=== PATIENT | male | born 1955 | race Caucasian/White ===

== ENCOUNTER 2016-12-08 07:50 | Observation (INO) | payer MEDICAID, OTHER ==
[~2016-12-08] VITALS: Ht 180.3 cm; Wt 98.3 kg
[2016-12-08] VITALS (9 sets, daily range): BP systolic 168–209; BP diastolic 82–117; PULSE 60–67; RESP 16–20; TEMP 98.1–99.2; O2SAT 94–97
[~2016-12-08 07:50] MED LIST: DIOV40TA PO; TAMS0.4C67 PO
[2016-12-08] MEDS ORDERED: TAMS0.4C4 PO (08:13)
--- NOTE | 2016-12-08 08:26 | PD ---
HPI Chief Complaint: Abdominal Pain Time Seen by Provider: 08:19 Travel History International Travel<30 days: No Contact w/Intl Traveler<30days: No Traveled to known affect area: No History of Present Illness HPI Patient presents with complaints of abdominal pain intermittently over the last 6 months. Normally resolves without complication however on this occasion it is persistent. Present for approximately 12-16 hours. Admits to an episode of nausea and vomiting. Denies any urinary or bowel symptoms. Reports stools are dark. Denies any abdominal surgeries. Denies any acid brash or reflux. Denies any fevers. PFSH Past Medical History Hx Anticoagulant Therapy: No Diabetes: No Genitourinary: Yes (ENLARGED PROSTATE) Hypertension: Yes Immunizations Current: Yes Influenza Vaccination: No Social History Alcohol Use: No Tobacco Use: No (NEVER) Substance Use: No Allergies-Medications (Allergen,Severity, Reaction): Coded Allergies: No Known Allergies (Unverified , 12/08/16) Reported Meds & Prescriptions Reported Meds & Active Scripts Active Reported Tamsulosin (Tamsulosin HCl) 0.4 Mg Cap 0.4 Mg PO DAILY Review of Systems General / Constitutional: No: Fever Eyes: No: Visual changes HENT: No: Headaches Cardiovascular: No: Chest Pain or Discomfort Respiratory: No: Shortness of Breath Gastrointestinal: Positive: Nausea, Vomiting, Abdominal Pain Genitourinary: No: Dysuria Musculoskeletal: No: Pain Skin: No Rash Neurologic: No: Weakness Psychiatric: No: Depression Endocrine: No: Polydipsia Hematologic/Lymphatic: No: Easy Bruising Physical Exam Narrative GENERAL: Well-nourished, well-developed patient. SKIN: Focused skin assessment warm/dry. HEAD: Normocephalic. EYES: No scleral icterus. No injection or drainage. NECK: Supple, trachea midline. No JVD or lymphadenopathy. CARDIOVASCULAR: Regular rate and rhythm without murmurs, gallops, or rubs. RESPIRATORY: Breath sounds equal bilaterally. No accessory muscle use. GASTROINTESTINAL: Abdomen soft, diffusely tender, nondistended, no hepatosplenomegaly. MUSCULOSKELETAL: No cyanosis, or edema. BACK: Nontender without obvious deformity. No CVA tenderness. Data Data Last Documented VS Vital Signs Date Time Temp Pulse Resp B/P Pulse Ox O2 Delivery O2 Flow Rate FiO2 12/08/16 09:00 16 96 Room Air 12/08/16 07:54 98.4 Orders Complete Blood Count With Diff (12/08/16 08:19) Comprehensive Metabolic Panel (12/08/16 08:19) Lipase (12/08/16 08:19) Lactic Acid (12/08/16 08:19) Ct Abd/Pel W Iv Contrast(Rout) (12/08/16 08:19) Iv Access Insert/Monitor (12/08/16 08:19) Ecg Monitoring (12/08/16 08:19) Oximetry (12/08/16 08:19) Ondansetron Inj (Zofran Inj) (12/08/16 08:30) Pantoprazole Inj (Protonix Inj) (12/08/16 08:30) Sodium Chloride 0.9% Flush (Ns Flush) (12/08/16 08:30) Famotidine Inj (Pepcid Inj) (12/08/16 08:30) Al-Mag Hy-Si 40-40-4 Mg/Ml Liq (Mag-Al P (12/08/16 08:30) Lidocaine 2% Viscous (Xylocaine 2% Visco (12/08/16 08:30) Oral Contrast - Adult (12/08/16 08:24) Diatrizoate Liq ( Gastroview Liq) (12/08/16 09:00) Iohexol 350 Inj (Omnipaque 350 Inj) (12/08/16 10:11) Ciprofloxacin 400 Mg Premix (Cipro 400 M (12/08/16 11:00) Metronidazole 500 Mg Inj (Flagyl 500 Mg (12/08/16 11:00) Urinalysis - C+S If Indicated (12/08/16 11:08) Place In Observation (12/08/16 ) Vital Signs (Adult) Q4H (12/08/16 11:09) Activity Oob With Assistance (12/08/16 11:09) Diet Npo (12/08/16 Lunch) Sodium Chloride 0.9% Flush (Ns Flush) (12/08/16 11:15) Sodium Chloride 0.9% Flush (Ns Flush) (12/08/16 21:00) Acetaminophen (Tylenol) (12/08/16 11:15) Ondansetron Inj (Zofran Inj) (12/08/16 11:15) Bisacodyl Supp (Dulcolax Supp) (12/08/16 11:15) Basic Metabolic Panel (Bmp) (12/09/16 06:00) Complete Blood Count With Diff (12/09/16 06:00) Resp Oxygen Bean C Titrat 1-4 L (12/08/16 ) Case Management Consult (12/08/16 11:09) Scd Bilateral/Knee High HAO.BID (12/08/16 11:09) Acetaminophen (Tylenol) (12/08/16 11:15) Acetamin-Hydrocod 325-5 Mg ([place] 5-325 (12/08/16 11:15) Acetamin-Hydrocod 325-10 Mg ([place] 10-32 (12/08/16 11:15) Morphine Inj (Morphine Inj) (12/08/16 11:15) Morphine Inj (Morphine Inj) (12/08/16 11:15) Morphine Inj (Morphine Inj) (12/08/16 11:15) Naloxone Inj (Narcan Inj) (12/08/16 11:15) Ns + Kcl 20 Meq Inj (Ns + Kcl 20 Meq Inj (12/08/16 11:15) Occult Blood (Hemoccult) Stool (12/08/16 11:09) Pantoprazole Inj (Protonix Inj) (12/08/16 12:00) Enalaprilat Inj (Vasotec Inj) (12/08/16 11:15) Clonidine (Catapres) (12/08/16 11:15) Tamsulosin (Flomax) (12/09/16 09:00) Consult General Surgery (12/08/16 ) Metronidazole 500 Mg Inj (Flagyl 500 Mg (12/08/16 18:00) Ciprofloxacin 400 Mg Premix (Cipro 400 M (12/08/16 23:00) Us Abdomen Gallbladder (12/08/16 ) Admit Order (Ed Use Only) (12/08/16 ) Vital Signs (Adult) Q4H (12/08/16 11:47) Diet Npo (12/09/16 Breakfast) Activity Bed Rest With Brp (12/08/16 11:47) ^ Saline Lock (12/08/16 11:47) Resp Oxygen Bean C Titrat 1-4 L (12/08/16 ) Notify Dr: Other (12/08/16 11:47) 1/2 Ns + Kcl 20 Meq Inj (1/2 Ns + Kcl 20 (12/08/16 12:00) Labs Laboratory Tests Test 12/08/16 12/08/16 12/08/16 12/08/16 08:30 08:44 08:45 11:15 Lactic Acid Level 2.4 mmol/L White Blood Count 8.9 TH/MM3 Red Blood Count 5.20 MIL/MM3 Hemoglobin 15.0 GM/DL Hematocrit 45.6 % Mean Corpuscular Volume 87.6 FL Mean Corpuscular Hemoglobin 28.8 PG Mean Corpuscular Hemoglobin 32.8 % Concent Red Cell Distribution Width 13.4 % Platelet Count 246 TH/MM3 Mean Platelet Volume 8.3 FL Neutrophils (%) (Auto) 86.7 % Lymphocytes (%) (Auto) 7.6 % Monocytes (%) (Auto) 3.9 % Eosinophils (%) (Auto) 1.1 % Basophils (%) (Auto) 0.7 % Neutrophils # (Auto) 7.7 TH/MM3 Lymphocytes # (Auto) 0.7 TH/MM3 Monocytes # (Auto) 0.3 TH/MM3 Eosinophils # (Auto) 0.1 TH/MM3 Basophils # (Auto) 0.1 TH/MM3 CBC Comment DIFF FINAL Differential Comment Sodium Level 143 MEQ/L Potassium Level 4.3 MEQ/L Chloride Level 107 MEQ/L Carbon Dioxide Level 25.3 MEQ/L Anion Gap 11 MEQ/L Blood Urea Nitrogen 15 MG/DL Creatinine 0.79 MG/DL Estimat Glomerular Filtration 100 ML/MIN Rate Random Glucose 116 MG/DL Calcium Level 8.8 MG/DL Total Bilirubin 0.7 MG/DL Aspartate Amino Transf 21 U/L (AST/SGOT) Alanine Aminotransferase 30 U/L (ALT/SGPT) Alkaline Phosphatase 59 U/L Total Protein 7.2 GM/DL Albumin 3.5 GM/DL Lipase 108 U/L Urine Collection Type CLEAN CATCH Urine Color YELLOW Urine Turbidity CLEAR Urine pH 5.5 Urine Specific [place] 1.010 Urine Protein NEG mg/dL Urine Glucose (UA) NEG mg/dL Urine Ketones NEG mg/dL Urine Occult Blood TRACE Urine Nitrite NEG Urine Bilirubin NEG Urine Leukocyte Esterase NEG Urine RBC 0-3 /hpf Urine Squamous Epithelial 0-5 /hpf Cells Microscopic Urinalysis Comment CULT NOT INDICATED Urine Collection Time 11:15 MDM Medical Decision Making Medical Screen Exam Complete: Yes Emergency Medical Condition: Yes Differential Diagnosis Colitis, gastroenteritis, pancreatitis, gallbladder disease, GI bleed Narrative Course Assessment and plan discussed the patient and at bedside. Last 72 hours Impressions Abdomen/Pelvis CT 12/08/16 0819 Signed Impressions: Service Date/Time: Thursday, December 08, 2016 09:59 - CONCLUSION: 1. Slightly prominent gallbladder with possible gallbladder wall thickening and pericholecystic fluid and cholecystitis is not excluded. 2. Enlarged prostate, and probable bladder diverticulum. Kervin Horowitz MD With questionable cholecystitis patient was given IV antibiotics. Physician Communication Physician Communication Spoke with Dr. Brown who is in agreement will admit for observation. Spoke with Dr. Lo with surgery he is aware and will follow up on the ultrasound. Diagnosis Primary Impression: Abdominal pain Qualified Code: R10.84 - Generalized abdominal pain Admitting Information Admitting Physician Requests: Observation Pancho Pablo MD Dec 08, 2016 08:26
[2016-12-08] MEDS ORDERED: LIDOCAINE VISCOUS 2% SOLN 15 ML UDC PO ONE (08:30)
[2016-12-08] MEDS ORDERED: PANTOPRAZOLE SODIUM 40 MG VIAL IVP ONE (08:30)
[2016-12-08] MEDS ORDERED: FAMOTIDINE 20 MG/2 ML VIAL IV PUSH ONE (08:30)
[2016-12-08] MEDS ORDERED: ALUMINUM/MAGNESIUM/SIMETH 30 ML CUP PO ONE (08:30)
[2016-12-08] MEDS ORDERED: SODIUM CHLORIDE 0.9% FLUSH 10 ML FLUSH IV FLUSH PRN ×2 (08:30→11:15)
[2016-12-08] MEDS ORDERED: ONDANSETRON HCL 4 MG/2 ML VIAL IVP ONE (08:30)
[2016-12-08] MEDS ORDERED: DIATRIZOATE MEGLUM/DIATRIZOATE SOD 9 ML CUP ONE (09:00)
[2016-12-08 09:13] LABS: AUTOMATED NEUTROPHIL # 7.7 TH/MM3 (1.8-7.7); BASOPHIL # 0.1 TH/MM3 (0-0.2); BASOPHIL % 0.7 % (0.0-2.0); EOSINOPHIL # 0.1 TH/MM3 (0-0.4); EOSINOPHIL % 1.1 % (0.0-4.0); HEMATOCRIT 45.6 % (39.0-51.0); HEMO FLAGS DIFF FINAL; LYMPH % 7.6 % (9.0-44.0); LYMPHOCYTE # 0.7 TH/MM3 (1.0-4.8); MEAN CELL VOLUME 87.6 FL (80.0-100.0); MEAN CORPUSCULAR HEMOGLOBIN 28.8 PG (27.0-34.0); MEAN CORPUSCULAR HGB CONC 32.8 % (32.0-36.0); MONO % 3.9 % (0.0-8.0); NEUT % 86.7 % (16.0-70.0); PLATELET COUNT 246 TH/MM3 (150-450); RED CELL DISTRIBUTION WIDTH 13.4 % (11.6-17.2); WHITE BLOOD COUNT 8.9 TH/MM3 (4.0-11.0)
[2016-12-08 09:50] LABS: BICARBONATE 25.3 MEQ/L (21.0-32.0); BLOOD UREA NITROGEN 15 MG/DL (7-18)
[2016-12-08 09:53] LABS: GLOMERULAR FILTRATION RATE 100 ML/MIN (>89)
[2016-12-08 09:56] LABS: ALKALINE PHOSPHATASE 59 U/L (45-117)
[2016-12-08 09:58] LABS: ANION GAP 11 MEQ/L (5-15); CHLORIDE 107 MEQ/L (98-107); POTASSIUM 4.3 MEQ/L (3.5-5.1); SODIUM (NA) 143 MEQ/L (136-145)
[2016-12-08 10:03] LABS: ALT (GPT) 30 U/L (12-78)
[2016-12-08 10:06] LABS: AST (GOT) 21 U/L (15-37)
[2016-12-08 10:09] LABS: TOTAL BILIRUBIN ADULT 0.7 MG/DL (0.2-1.0)
[2016-12-08] MEDS ORDERED: IOHEXOL 350 MG/ML 10 ML VIAL (for RAD DIAG) IV ONE (10:11)
--- NOTE | 2016-12-08 10:22 | RADHPO ---
EXAM DATE/TIME: 12/08/2016 09:59 [facility] COMPARISON: No previous studies available for comparison. INDICATIONS : Mid abdominal pain. IV CONTRAST: 95 cc Omnipaque 350 (iohexol) IV ORAL CONTRAST: Prescribed oral contrast ingested. RADIATION DOSE: 20.51 CTDIvol (mGy) MEDICAL HISTORY : Hypertension. Enlarged prostate SURGICAL HISTORY : None. ENCOUNTER: Initial ACUITY: 2 days PAIN SCALE: 7/10 LOCATION: TECHNIQUE: Volumetric scanning of the abdomen and pelvis was performed. Using automated exposure control and adjustment of the mA and/or kV according to patient size, radiation dose was kept as low as reasonably achievable to obtain optimal diagnostic quality images. FINDINGS: CT Abdomen: The gallbladder appears distended with possible slight degree of thickening of the gallbl adder wall and pericholecystic fluid. No definite gallstones are present, however this possibility is not excluded based on this technique. There are tiny cysts in both kidneys. The liver, spleen, pancr eas, adrenals are unremarkable. There is no evidence for any appreciable pathological adenopathy, tariq e fluid, or bowel obstruction. Slight degree of somewhat linear irregular opacity is seen in the righ t lung base mostly consistent with scarring. CT pelvis: There is a fluid containing structure adjacent to the left side of the bladder measuring 5 .7 x 3.3 cm in size probably a bladder diverticulum and appears to be separate from the ureter, howev er a clear communication with the bladder is difficult to establish based on this examination. There is an old fracture of L4 transverse process on the right. The prostate measures 4.6 x 4.8 cm in AP an d transverse diameters. There are scattered diverticuli mainly in the sigmoid colon without definite signs of diverticulitis. CONCLUSION: 1. Slightly prominent gallbladder with possible gallbladder wall thickening and pericholecystic fluid and cholecystitis is not excluded. 2. Enlarged prostate, and probable bladder diverticulum. Kervin Horowitz MD on December 08, 2016 at 10:14 Board Certified Radiologist. This report was verified electronically.
[2016-12-08] MEDS ORDERED: CIPROFLOXACIN 400 MG PREMIX 200 ML IV ONE (11:00)
[2016-12-08] MEDS ORDERED: metroNIDAZOLE 500 MG INJ 100 ML IV ONE (11:00)
[2016-12-08] MEDS ORDERED: MORPHINE SULFATE 4 MG/ML INJ IV PRN ×2 (11:15)
[2016-12-08] MEDS ORDERED: cloNIDine HCL 0.1 MG TAB PO PRN (11:15)
[2016-12-08] MEDS ORDERED: BISACODYL 10 MG SUPP RECTAL PRN (11:15)
[2016-12-08] MEDS ORDERED: ACETAMINOPHEN 325 MG TAB PO PRN ×2 (11:15)
[2016-12-08] MEDS ORDERED: ONDANSETRON HCL 4 MG/2 ML VIAL IVP PRN (11:15)
[2016-12-08] MEDS ORDERED: NALOXONE HCL 0.4 MG/ML AMP IV PRN (11:15)
[2016-12-08] MEDS ORDERED: ENALAPRILAT 1.25 MG/ML VIAL IV PRN (11:15)
[2016-12-08 11:34] LABS: BLOOD, URINE TRACE (NEG); GLUCOSE,URINE NEG (NEG); KETONE, URINE NEG (NEG); NITRITE,URINE NEG (NEG); PH, URINE 5.5 (5.0-8.5)
[2016-12-08 11:41] LABS: METHOD OF COLLECTION CLEAN CATCH; URINE COLOR YELLOW (YELLW/STRAW)
[2016-12-08 11:42] LABS: COMMENT (UR) CULT NOT INDICATED; CULTURE IF INDICATED CULT NOT INDICATED; RBC, URINE 0-3 /hpf (0-3); SQUAMOUS EPITHELIAL CELL URINE 0-5 /hpf (0-5)
[2016-12-08] MEDS ORDERED: 1/2 NS + KCL 20 MEQ INJ 1,000 ML IV SCH (12:00)
[2016-12-08] MEDS: PANTOPRAZOLE SODIUM 40 MG VIAL IV PUSH SCH (12:00)
[2016-12-08] MEDS: NS + KCL 20 MEQ INJ 1,000 ML IV SCH ×2 (12:14→22:59)
--- NOTE | 2016-12-08 13:24 | RADHPO ---
EXAM DATE/TIME: 12/08/2016 12:27 [facility] COMPARISON: No previous studies available for comparison. INDICATIONS : Right upper quadrant pain. MEDICAL HISTORY : Hypertension. Benign prostatic hyperplasia, (BPH) SURGICAL HISTORY : Total knee replacement, left. ENCOUNTER: Initial ACUITY: 3 months PAIN SCORE: 4/10 LOCATION: Right upper quadrant MEASUREMENTS: LIVER: 18.8 cm length COMMON DUCT: 4 mm RIGHT KIDNEY: 11.5 x 6.0 x 6.6 cm FINDINGS: Multiple gallstones are present with thickening of the gallbladder wall and pericholecystic fluid cho lecystitis should be entertained. The liver appears grossly intact and the pancreas is difficult to v isualize. CONCLUSION: Cholelithiasis and findings are suspicious for acute cholecystitis. Kervin Horowitz MD on December 08, 2016 at 13:21 Board Certified Radiologist. This report was verified electronically.
--- NOTE | 2016-12-08 13:57 | HHI.HP ---
[facility] Service [facility] Primary Care Physician Non-Staff Admission Diagnosis abdominal pain Diagnoses: (1) Acute cholecystitis Diagnosis: Principal (2) Abdominal pain Diagnosis: Principal (3) Lactic acid acidosis Diagnosis: Principal (4) Hypertension Diagnosis: Secondary Chief Complaint: Abdominal pain Travel History International Travel<30 Days: No Contact w/Intl Traveler <30 Da: No Traveled to Known Affected Are: No History of Present Illness 61-year-old male with known history of hypertension which is untreated , benign prostatic hypertrophy who presented to hospital because of abdominal pain. Patient states that he has had approximately 6 month history of abdominal pain located in the upper abdomen mainly after he eats associated with increased belching and flatulence. He has been self treating with Pepto- Bismol which has helped with relieving his symptoms. Patient went to a bar last night and states that he ate "[employer]" and had a Beer, when he got home he ate some pizza and had another Beer. He went to bed and he was woke up in the middle the night at approximately 2 AM with diffuse severe abdominal pain 10 /10 on a pain scale. Around 5 AM he had an episode of nausea vomiting. Since the pain did not improve he came to the hospital for evaluation. Patient had workup done emergency department and CT scan indicating prominent gallbladder and possible gallbladder wall thickening with pericholecystic fluid with mild lactic acid elevation. ER physician contacted surgeon who recommended ultrasound be performed which did indicate cholelithiasis and findings that are suspicious for acute cholecystitis. Patient is actually resting comfortably in the bed at this time. Pain is controlled with medication. He denies any hematemesis, diarrhea, constipation, hematochezia. Patient states that he has had some dark color stools lately. Review of Systems Constitutional: DENIES: Diaphoretic episodes, Fatigue, Fever, Weight gain, Weight loss, Chills, Dizziness, Change in appetite, Night Sweats Eyes: DENIES: Blurred vision, Diplopia, Eye inflammation, Eye pain, Vision loss , Double Vision Ears, nose, mouth, throat: DENIES: Vertigo, Nasal discharge, Throat pain, Ear Pain, Running Nose, Sinus Pain Respiratory: DENIES: Apneas, Cough, Snoring, Wheezing, Hemoptysis, Sputum production, Shortness of breath Cardiovascular: DENIES: Chest pain, Palpitations, Syncope, Dyspnea on Exertion , Lower Extremity Edema, Orthopnea Gastrointestinal: COMPLAINS OF: Abdominal pain, Nausea, Vomiting, DENIES: Black stools, Bloody stools, Constipation, Diarrhea, Difficulty Swallowing, Anorexia Neurologic: DENIES: Abnormal gait, Headache, Localized weakness, Paresthesias, Seizures, Speech Problems, Tremor, Poor Balance Past Family Social History Past Medical History Hypertension, untreated Benign prostatic hypertrophy Past Surgical History Left knee surgery Reported Medications Reported Meds & Active Scripts Active Reported Tamsulosin (Tamsulosin HCl) 0.4 Mg Cap 0.4 Mg PO DAILY Allergies: Coded Allergies: No Known Allergies (Unverified , 12/08/16) Family History Reviewed and unremarkable for any heart disease, diabetes Social History Patient rates alcohol rarely, denies any tobacco or illicit drugs Physical Exam Vital Signs Vital Signs Date Time Temp Pulse Resp B/P Pulse Ox O2 Delivery O2 Flow Rate FiO2 12/08/16 13:00 98.1 62 18 172/84 96 12/08/16 12:43 65 18 172/90 95 12/08/16 09:00 16 96 Room Air 12/08/16 09:00 96 21 12/08/16 09:00 62 16 180/85 96 Room Air 12/08/16 07:54 98.4 65 16 170/102 97 Physical Exam GENERAL: Well-developed, well-nourished, in no acute distress. alert and orientated HEENT: Head is normocephalic without any lesions or masses noted. Facial features are symmetric. Eyes: Pupils equal round reactive to light. Extraocular muscles are intact. Conjunctivae were clear. Oropharyngeal: Pharynx without any erythema edema. Tongue is midline without deviation. Buccal mucosa is moist without any masses or lesions NECK: Supple without any masses. Trachea midline no deviation. No JVD, no bruits are appreciated CARDIAC: Regular rhythm, regular rate. S1/S2 are heard. No murmurs gallops or rubs. LUNGS: Clear to auscultation bilaterally. No wheeze, rhonchi or rales. No use of accessory muscles on inspiration or expiration. ABDOMEN: Soft, nontender. Nondistended. Bowel sounds heard in all 4 quadrants. No organomegaly or masses. Negative rebound, negative guarding EXTREMITIES: No edema, pulses are equal bilaterally. No cyanosis or clubbing NEUROLOGY: Mood and affect appear appropriate. Cranial nerves II through XII grossly intact. Muscle strength 5/5 in upper and lower extremities bilaterally. Deep tendon reflexes are 2+ in upper and lower extremities bilaterally. Laboratory Laboratory Tests Test 12/08/16 12/08/16 12/08/16 12/08/16 08:30 08:44 08:45 11:15 Lactic Acid Level 2.4 White Blood Count 8.9 Red Blood Count 5.20 Hemoglobin 15.0 Hematocrit 45.6 Mean Corpuscular Volume 87.6 Mean Corpuscular Hemoglobin 28.8 Mean Corpuscular Hemoglobin 32.8 Concent Red Cell Distribution Width 13.4 Platelet Count 246 Mean Platelet Volume 8.3 Neutrophils (%) (Auto) 86.7 Lymphocytes (%) (Auto) 7.6 Monocytes (%) (Auto) 3.9 Eosinophils (%) (Auto) 1.1 Basophils (%) (Auto) 0.7 Neutrophils # (Auto) 7.7 Lymphocytes # (Auto) 0.7 Monocytes # (Auto) 0.3 Eosinophils # (Auto) 0.1 Basophils # (Auto) 0.1 CBC Comment DIFF FINAL Differential Comment Sodium Level 143 Potassium Level 4.3 Chloride Level 107 Carbon Dioxide Level 25.3 Anion Gap 11 Blood Urea Nitrogen 15 Creatinine 0.79 Estimat Glomerular Filtration 100 Rate Random Glucose 116 Calcium Level 8.8 Total Bilirubin 0.7 Aspartate Amino Transf 21 (AST/SGOT) Alanine Aminotransferase 30 (ALT/SGPT) Alkaline Phosphatase 59 Total Protein 7.2 Albumin 3.5 Lipase 108 Urine Collection Type CLEAN CATCH Urine Color YELLOW Urine Turbidity CLEAR Urine pH 5.5 Urine Specific [place] 1.010 Urine Protein NEG Urine Glucose (UA) NEG Urine Ketones NEG Urine Occult Blood TRACE Urine Nitrite NEG Urine Bilirubin NEG Urine Leukocyte Esterase NEG Urine RBC 0-3 Urine Squamous Epithelial 0-5 Cells Microscopic Urinalysis Comment CULT NOT INDICATED Urine Collection Time 11:15 Result Diagram: 12/08/16 0844 12/08/16 0845 Imaging Last Impressions Abdomen/Pelvis CT 12/08/16 0819 Signed Impressions: Service Date/Time: Thursday, December 08, 2016 09:59 - CONCLUSION: 1. Slightly prominent gallbladder with possible gallbladder wall thickening and pericholecystic fluid and cholecystitis is not excluded. 2. Enlarged prostate, and probable bladder diverticulum. Kervin Horowitz MD Gall Bladder Ultrasound 12/08/16 0000 Signed Impressions: Service Date/Time: Thursday, December 08, 2016 12:27 - CONCLUSION: Cholelithiasis and findings are suspicious for acute cholecystitis. Kervin Horowitz MD Assessment and Plan Assessment and Plan Acute cholecystitis with abdominal pain: Patient with classic symptoms of the last 6 months of acute abdominal pain after eating associated with increased belching, flatulence. Laboratory studies do not indicate any obstructive pattern at this time. CT scan does indicate prominent gallbladder with gallbladder wall thickening and pericholecystic fluid indicative of cholecystitis, ultrasound the gallbladder shows cholelithiasis and findings are suspicious for acute cholecystitis. Patient started on IV Cipro/Flagyl. Continue pain control. General surgery has been consulted, I have discussed case with them and they plan on evaluating the patient today and plans for surgical intervention tomorrow afternoon. Lactic acid acidosis: Probably secondary to above. Continue monitor lactic acid level Hypertension: Untreated. Start Vasotec/clonidine as needed for blood pressure management Benign prostatic hypertrophy: Resume home medications DVT prevention: Sequential compression devices Written by Joe Butler, acting as scribe for Dr. Brown on 12/08/16 at 13: 57. This note was transcribed by scribe Joe Butler. I, Dr. Gt Brown personally performed the history, physical exam, and medical decision making; and confirmed the accuracy of the information in the transcribed note. Authenticated by Dr. Gt Brown on 12/08/16 at 15:10. Physician Certification 2 Midnight Certification Type: Admission for Inpatient Services Order for Inpatient Services The services are ordered in accordance with Medicare regulations or non- Medicare payer requirements, as applicable. In the case of services not specified as inpatient-only, they are appropriately provided as inpatient services in accordance with the 2-midnight benchmark. Estimated LOS (days): 2 days is the estimated time the patient will need to remain in the hospital, assuming treatment plan goals are met and no additional complications. Post-Hospital Plan: Not yet determined Problem Qualifiers (1) Abdominal pain: Qualified Code: R10.84 - Generalized abdominal pain (2) Hypertension: Qualified Code: I15.9 - Secondary hypertension Joe Butler Dec 08, 2016 13:57 Gt Brown MD Dec 08, 2016 15:10
--- NOTE | 2016-12-08 15:16 | MB ---
cc: ARCHANA HENRY MD DATE OF CONSULTATION: 12/08/2016. REASON FOR CONSULTATION: Abdominal pain HISTORY OF PRESENT ILLNESS: This is a 61-year-old male who presented to the hospital early this morning with complaints of central abdominal pain; it was associated with nausea and vomiting. He had a large meal last night at a bar as well as a couple of beers and awoke from sleep early this morning with the pain. The patient has had similar pain for about six months and recently it has been daily and usually occurs after he eats. He denies fevers. He has never had any abdominal surgeries. The patient underwent a CT scan which showed a prominent gallbladder with possible wall thickening and fluid and then an ultrasound at my request which showed multiple gallstones with gallbladder wall thickening and pericholecystic fluid. Labs were essentially normal except for he has a left shift of 87% on CBC and lactic acid is mildly elevated at 2.4. PAST MEDICAL HISTORY: 1. Hypertension. 2. Benign prostate hypertrophy. PAST SURGICAL HISTORY: Left knee surgery. HOME MEDICATIONS: Flomax. ALLERGIES: NO KNOWN ALLERGIES. SOCIAL HISTORY: Rare alcohol. No tobacco or drug use. FAMILY HISTORY: Noncontributory. REVIEW OF SYSTEMS: Review of systems negative except as mentioned the history of present illness. PHYSICAL EXAMINATION: GENERAL: A pleasant 61-year-old male not in distress. VITAL SIGNS: Temperature 98.1, heart rate 62, respirations 18, blood pressure 172/84. HEAD, EYES, EARS, NOSE, THROAT: Head is normocephalic and atraumatic. Eyes - Pupils equal, round and react to light bilaterally. No scleral icterus. CARDIOVASCULAR: Regular rate and rhythm. LUNGS: Clear to auscultation bilaterally with no wheezing or rhonchi. ABDOMEN: Rounded, soft, essentially nontender. No previous incisions. EXTREMITIES: No cyanosis or edema. SKIN: Warm, dry, non jaundiced. IMPRESSION AND PLAN: 61-year-old male whose history and imaging is consistent with acute cholecystitis. Surprisingly, he does not really have any abdominal tenderness at this time but he does complain of abdominal pain and the imaging shows gallbladder wall thickening and the pericholecystic fluid. I have recommended cholecystectomy and described the procedure in detail to the patient including risks and benefits. Plan to proceed tomorrow. He is on Cipro and Flagyl. MD DAINA Pitts/JCNima /2:19 PM /3:10 PM
[2016-12-08] MEDS: metroNIDAZOLE 500 MG INJ 100 ML IV SCH ×2 (17:29→23:00)
[2016-12-08] MEDS: SODIUM CHLORIDE 0.9% FLUSH 10 ML FLUSH IV FLUSH SCH (19:48)
[2016-12-08] MEDS: CIPROFLOXACIN 400 MG PREMIX 200 ML IV SCH (23:00)
[2016-12-08] MEDS: ACETAMINOPHEN/HYDROcodone 325 MG/10 MG TAB PO PRN (23:04)
[2016-12-09] VITALS (7 sets, daily range): BP systolic 121–152; BP diastolic 67–94; PULSE 54–77; RESP 16–20; TEMP 97.6–98.5; O2SAT 92–96
[2016-12-09 06:00] LABS: BASOPHIL % 0.8 % (0.0-2.0); EOSINOPHIL # 0.2 TH/MM3 (0-0.4); HEMATOCRIT 38.2 % (39.0-51.0); HEMO FLAGS DIFF FINAL; LYMPHOCYTE # 1.1 TH/MM3 (1.0-4.8); MEAN CELL VOLUME 87.4 FL (80.0-100.0); MEAN CORPUSCULAR HEMOGLOBIN 29.7 PG (27.0-34.0); MEAN CORPUSCULAR HGB CONC 33.9 % (32.0-36.0); MONO % 13.1 % (0.0-8.0); NEUT % 64.1 % (16.0-70.0); PLATELET COUNT 194 TH/MM3 (150-450); RED BLOOD COUNT 4.37 MIL/MM3 (4.50-5.90); RED CELL DISTRIBUTION WIDTH 13.8 % (11.6-17.2); WHITE BLOOD COUNT 6.1 TH/MM3 (4.0-11.0)
[2016-12-09] MEDS: metroNIDAZOLE 500 MG INJ 100 ML IV SCH ×3 (06:03→20:57)
[2016-12-09] MEDS: ACETAMINOPHEN/HYDROcodone 325 MG/5 MG TAB PO PRN (06:08)
[2016-12-09 06:15] LABS: POTASSIUM 3.8 MEQ/L (3.5-5.1)
[2016-12-09] MEDS: NS + KCL 20 MEQ INJ 1,000 ML IV SCH ×2 (07:15→20:56)
[2016-12-09 07:36] LABS: APTT (PATIENT) 25.9 SEC (24.3-30.1); PROTHROMBIN TIME - PATIENT 11.4 SEC (9.8-11.6)
--- NOTE | 2016-12-09 09:44 | HHI.PR ---
Subjective Remarks Patient seen and examined today with Dr. Brown in follow-up for abdominal pain , cholecystitis. Patient states that did well overnight. Still having some mild abdominal discomfort. Patient has not ate anything so he does not know if the pain will get worse. Patient still receiving pain control. Plans for surgical intervention this afternoon. Had discussion with patient and at bedside concerning his presentation, condition and surgical intervention. They acknowledged understanding Objective Vitals Vital Signs Date Time Temp Pulse Resp B/P Pulse Ox O2 Delivery O2 Flow Rate FiO2 12/09/16 08:00 98.1 54 16 129/78 92 12/09/16 07:31 18 12/09/16 04:00 98.0 56 18 121/78 96 12/09/16 00:00 98.5 61 20 128/67 95 12/08/16 20:36 98.9 63 20 168/96 94 12/08/16 19:53 97 21 12/08/16 16:00 99.2 67 18 178/87 96 12/08/16 13:00 98.1 62 18 172/84 96 12/08/16 12:43 65 18 172/90 95 12/08/16 11:22 60 16 188/82 97 Room Air 12/08/16 10:20 64 16 209/117 96 Room Air I/O 12/08/16 12/08/16 12/08/16 12/09/16 12/09/16 12/09/16 07:00 15:00 23:00 07:00 15:00 23:00 Intake Total 300 ml 2164 ml 860 ml Output Total 200 ml Balance 100 ml 2164 ml 860 ml Intake Oral 450 ml IV Total 300 ml 1614 ml 860 ml Other 100 ml Output Urine Total 200 ml # Voids 4 3 # Bowel Movements 0 Result Diagram: 12/09/16 0540 12/09/16 0540 Imaging Last Impressions Abdomen/Pelvis CT 12/08/16 0819 Signed Impressions: Service Date/Time: Thursday, December 08, 2016 09:59 - CONCLUSION: 1. Slightly prominent gallbladder with possible gallbladder wall thickening and pericholecystic fluid and cholecystitis is not excluded. 2. Enlarged prostate, and probable bladder diverticulum. KAbelardo Horowitz MD Gall Bladder Ultrasound 12/08/16 0000 Signed Impressions: Service Date/Time: Thursday, December 08, 2016 12:27 - CONCLUSION: Cholelithiasis and findings are suspicious for acute cholecystitis. Kervin Horowitz MD Objective Remarks GENERAL: Well-developed, well-nourished, in no acute distress. alert and orientated HEENT: Head is normocephalic without any lesions or masses noted. Facial features are symmetric. Eyes: Extraocular muscles are intact. Conjunctivae were clear. NECK: Supple without any masses. Trachea midline no deviation. No JVD, CARDIAC: Regular rhythm, regular rate. S1/S2 are heard. No murmurs gallops or rubs. LUNGS: Clear to auscultation bilaterally. No wheeze, rhonchi or rales. No use of accessory muscles on inspiration or expiration. ABDOMEN: Soft, mild diffuse tenderness. Nondistended. Bowel sounds heard in all 4 quadrants. No organomegaly or masses. Negative rebound, negative guarding EXTREMITIES: No edema, pulses are equal bilaterally. No cyanosis or clubbing NEUROLOGY: Mood and affect appear appropriate. Cranial nerves II through XII grossly intact. Moving all extremities, speech is clear Urinary Catheter: No Vascular Central Line Catheter: No A/P Assessment and Plan Acute cholecystitis with abdominal pain: Patient with classic symptoms of the last 6 months of acute abdominal pain after eating associated with increased belching, flatulence. Laboratory studies did not indicate any obstructive pattern at this time. CT scan does indicate prominent gallbladder with gallbladder wall thickening and pericholecystic fluid indicative of cholecystitis, ultrasound the gallbladder shows cholelithiasis and findings are suspicious for acute cholecystitis. Patient started on IV Cipro/Flagyl. Continue pain control. General surgery has been consulted, and indicated that patient to have surgical intervention this afternoon Lactic acid acidosis, resolved: Probably secondary to above. Repeat lactic acid level was normal Hypertension: Untreated. Improved. Elevated blood pressure to be secondary to pain reaction. Continue Vasotec/clonidine as needed for blood pressure management Benign prostatic hypertrophy: Resume home medications DVT prevention: Sequential compression devices Written by Joe Butler, acting as scribe for Dr. Brown on 12/09/16 at 09: 43. This note was transcribed by scribe Joe Butler. I, Dr. Gt Brown personally performed the history, physical exam, and medical decision making; and confirmed the accuracy of the information in the transcribed note. Authenticated by Dr. Gt Brown on 12/09/16 at 15:14. Discharge Planning Discharge planning likely 2448 hours depending on surgical intervention and postsurgical recovery Joe Butler Dec 09, 2016 09:43 Gt Brown MD Dec 09, 2016 15:15
[2016-12-09] MEDS: TAMSULOSIN HCL 0.4 MG CAP PO SCH (09:53)
[2016-12-09] MEDS: ACETAMINOPHEN/HYDROcodone 325 MG/10 MG TAB PO PRN ×2 (09:53→21:15)
[2016-12-09] MEDS: SODIUM CHLORIDE 0.9% FLUSH 10 ML FLUSH IV FLUSH SCH ×2 (09:54→20:58)
[2016-12-09] MEDS: CIPROFLOXACIN 400 MG PREMIX 200 ML IV SCH ×2 (11:09→23:16)
--- NOTE | 2016-12-09 11:15 | EKG ---
Date Performed: 12/09/2016 Time Performed: 07:00:22 PTAGE: 61 years EKG: Regular supraventricular rhythm. Leftward axis Poor R wave progression - probable normal [facility] Inferior/lateral T wave changes are nonspecific Borderline ECG NO PREVIOUS TRACING DOCTOR: Adalberto Peterson Interpretating Date/Time 12/09/2016 11:13:11
[2016-12-09] MEDS: PANTOPRAZOLE SODIUM 40 MG VIAL IV PUSH SCH (11:21)
[2016-12-09] MEDS ORDERED: NEOSTIGMINE 3 MG/3 ML SYR IV ONE (12:00)
[2016-12-09] MEDS ORDERED: ePHEDrine/NS 25 MG/5 ML SYR IV ONE (12:00)
[2016-12-09] MEDS ORDERED: LACTATED RINGER'S 1000 ML INJ 1,000 ML IV ONE (12:00)
[2016-12-09] MEDS ORDERED: PROPOFOL 200 MG/20 ML AMP IV ONE (12:00)
[2016-12-09] MEDS ORDERED: FAMOTIDINE 20 MG/2 ML VIAL ONE (13:40)
[2016-12-09] MEDS ORDERED: MIDAZOLAM HCL 2 MG/2 ML VIAL ONE (13:40)
[2016-12-09] MEDS ORDERED: BUPIVACAINE/EPINEPHRINE 0.25% PF 30 ML VIAL ONE (13:41)
[2016-12-09] MEDS ORDERED: HYDR-3583 PO (15:15)
--- NOTE | 2016-12-09 15:16 | HHI.DCPOC ---
Discharge Care Plan Diagnosis: (1) Acute cholecystitis (2) Abdominal pain (3) Hypertension (4) Lactic acid acidosis Your Health Problems Are: Difficulty with ADL Exercise Tolerance Goals to Promote Your Health * To prevent worsening of your condition and complications * To maintain your health at the optimal level Directions to Meet Your Goals Take your medications as prescribed Follow your dietary instruction Follow activity as directed Keep your appointments as scheduled Take your immunizations and boosters as scheduled If your symptoms worsen call your PCP, if no PCP go to Urgent Care Center or Emergency Room Smoking is Dangerous to Your Health. Avoid second hand smoke Call the 24-hour hour crisis hotline for domestic abuse at Gt Brown MD Dec 09, 2016 15:16
--- NOTE | 2016-12-09 17:23 | HHI.PR ---
Subjective Subjective Notes No complaints. Ready for OR. Objective Vitals/I&O Vital Signs Date Time Temp Pulse Resp B/P Pulse Ox O2 Delivery O2 Flow Rate FiO2 12/09/16 13:16 97.6 59 16 128/83 94 12/08/16 19:53 21 12/08/16 11:22 Room Air Labs Laboratory Tests Test 12/09/16 12/09/16 05:40 06:50 White Blood Count 6.1 Red Blood Count 4.37 Hemoglobin 12.9 Hematocrit 38.2 Mean Corpuscular Volume 87.4 Mean Corpuscular Hemoglobin 29.7 Mean Corpuscular Hemoglobin 33.9 Concent Red Cell Distribution Width 13.8 Platelet Count 194 Mean Platelet Volume 7.8 Neutrophils (%) (Auto) 64.1 Lymphocytes (%) (Auto) 19.0 Monocytes (%) (Auto) 13.1 Eosinophils (%) (Auto) 3.0 Basophils (%) (Auto) 0.8 Neutrophils # (Auto) 4.0 Lymphocytes # (Auto) 1.1 Monocytes # (Auto) 0.8 Eosinophils # (Auto) 0.2 Basophils # (Auto) 0.0 CBC Comment DIFF FINAL Differential Comment Sodium Level 144 Potassium Level 3.8 Chloride Level 106 Carbon Dioxide Level 29.0 Anion Gap 9 Blood Urea Nitrogen 13 Creatinine 0.77 Estimat Glomerular Filtration 103 Rate Random Glucose 101 Calcium Level 7.9 Prothrombin Time 11.4 Prothromb Time International 1.0 Ratio Activated Partial 25.9 Thromboplast Time Narrative Exam NAD mod RUQ ttp A/P Assessment and Plan 61 yo M with acute cholecystitis To OR now for lap possible open cholecystectomy Wally,Kevin FELIZ Dec 09, 2016 17:23
[2016-12-09] MEDS ORDERED: ACETAMINOPHEN 1000 MG/100 ML VIAL IV ONE (18:24)
[2016-12-09] MEDS ORDERED: CIPR-9 PO (19:15)
[2016-12-09] MEDS ORDERED: METR-1 PO (19:15)
--- NOTE | 2016-12-09 19:16 | HHI.PR ---
Immediate Post Op Note Procedure Date: Dec 09, 2016 Pre Op Diagnosis: (1) Acute cholecystitis Post Op Diagnosis: (1) Acute cholecystitis Surgeon: Kevin Lo Nc Manager(s): staff Procedure: lap cholecystectomy Findings: inflamed gallbladder, clear bile, full of stones, ? early gangrenous Estimated blood loss: 50cc Anesthesia: General Drains: [place] Patient to: PACU Patient Condition: Good Date/Time of Procedure: SEE SURGICAL CARE RECORD Kevin Lo MD Dec 09, 2016 19:16
[2016-12-09] MEDS ORDERED: fentaNYL CITRATE 250 MCG/5 ML AMP ONE (19:30)
[2016-12-09] MEDS ORDERED: MORPHINE SULFATE 8 MG/ML INJ ONE (19:49)
[2016-12-09] MEDS: MORPHINE SULFATE 4 MG/ML INJ IV PRN (23:36)
[2016-12-10] VITALS: BP 141/84; PULSE 68; RESP 18; TEMP 98.1; O2SAT 90
[2016-12-10] MEDS: MORPHINE SULFATE 4 MG/ML INJ IV PRN (02:50)
[2016-12-10] MEDS: NS + KCL 20 MEQ INJ 1,000 ML IV SCH ×2 (03:15→11:29)
[2016-12-10] MEDS: metroNIDAZOLE 500 MG INJ 100 ML IV SCH ×3 (06:59→12:00)
[2016-12-10] MEDS: ACETAMINOPHEN/HYDROcodone 325 MG/10 MG TAB PO PRN (07:24)
[2016-12-10 08:00] VITALS: BP 158/97; PULSE 66; RESP 18; TEMP 97.4; O2SAT 94
[2016-12-10] MEDS: TAMSULOSIN HCL 0.4 MG CAP PO SCH (08:11)
[2016-12-10] MEDS: SODIUM CHLORIDE 0.9% FLUSH 10 ML FLUSH IV FLUSH SCH (08:11)
--- NOTE | 2016-12-10 09:25 | HHI.PR ---
Subjective Subjective Notes He feels better. Had breakfast. Pain is controlled. Objective Vitals/I&O Vital Signs Date Time Temp Pulse Resp B/P Pulse Ox O2 Delivery O2 Flow Rate FiO2 12/10/16 08:00 97.4 66 18 158/97 94 12/09/16 20:15 Nasal Cannula 2 12/08/16 19:53 21 Narrative Exam NAD Abd: round, mod distention, inc c/d/i, virgil ss output A/P Assessment and Plan 61 yo M with acute cholecystitis POD 1 lap kalpana. Stable post op. Ok to dc home with virgil drain- he will care for it. Cipro/flagyl /pain meds. F/u with me Friday. Wally,Kevin FELIZ Dec 10, 2016 09:25
[2016-12-10] MEDS: PANTOPRAZOLE SODIUM 40 MG VIAL IV PUSH SCH (11:29)
[2016-12-10] MEDS: CIPROFLOXACIN 400 MG PREMIX 200 ML IV SCH (11:29)
[2016-12-10] MEDS: ACETAMINOPHEN/HYDROcodone 325 MG/5 MG TAB PO PRN (11:36)
[2016-12-10 12:00] VITALS: BP 133/74; PULSE 63; RESP 18; TEMP 97.7; O2SAT 93
--- NOTE | 2016-12-10 13:57 | HHI.DS ---
Discharge Summary Admission Date Dec 08, 2016 at 11:53 Discharge Date: Dec 10, 2016 Admitting Diagnosis abdominal pain (1) Acute cholecystitis ICD Code: K81.0 Diagnosis: Principal (2) Abdominal pain ICD Code: R10.9 Diagnosis: Principal (3) Lactic acid acidosis ICD Code: E87.2 Diagnosis: Secondary (4) Hypertension ICD Code: I10 Diagnosis: Secondary Procedures Laparoscopic cholecystectomy 12/09/16 Brief History - From Admission 61-year-old male with known history of hypertension which is untreated , benign prostatic hypertrophy who presented to hospital because of abdominal pain. Patient states that he has had approximately 6 month history of abdominal pain located in the upper abdomen mainly after he eats associated with increased belching and flatulence. He has been self treating with Pepto- Bismol which has helped with relieving his symptoms. Patient went to a bar last night and states that he ate "[employer]" and had a Beer, when he got home he ate some pizza and had another Beer. He went to bed and he was woke up in the middle the night at approximately 2 AM with diffuse severe abdominal pain 10 /10 on a pain scale. Around 5 AM he had an episode of nausea vomiting. Since the pain did not improve he came to the hospital for evaluation. Patient had workup done emergency department and CT scan indicating prominent gallbladder and possible gallbladder wall thickening with pericholecystic fluid with mild lactic acid elevation. ER physician contacted surgeon who recommended ultrasound be performed which did indicate cholelithiasis and findings that are suspicious for acute cholecystitis. Patient is actually resting comfortably in the bed at this time. Pain is controlled with medication. He denies any hematemesis, diarrhea, constipation, hematochezia. Patient states that he has had some dark color stools lately. CBC/BMP: 12/09/16 0540 12/09/16 0540 Significant Findings Laboratory Tests Test 12/08/16 12/08/16 12/08/16 12/08/16 08:30 08:44 08:45 11:15 Lactic Acid Level 2.4 mmol/L (0.4-2.0) Neutrophils (%) (Auto) 86.7 % (16.0-70.0) Lymphocytes (%) (Auto) 7.6 % (9.0-44.0) Lymphocytes # (Auto) 0.7 TH/MM3 (1.0-4.8) Random Glucose 116 MG/DL (74-106) Urine Occult Blood TRACE (NEG) Test 12/09/16 05:40 Red Blood Count 4.37 MIL/MM3 (4.50-5.90) Hemoglobin 12.9 GM/DL (13.0-17.0) Hematocrit 38.2 % (39.0-51.0) Monocytes (%) (Auto) 13.1 % (0.0-8.0) Calcium Level 7.9 MG/DL (8.5-10.1) Imaging Last Impressions Abdomen/Pelvis CT 12/08/16 0819 Signed Impressions: Service Date/Time: Thursday, December 08, 2016 09:59 - CONCLUSION: 1. Slightly prominent gallbladder with possible gallbladder wall thickening and pericholecystic fluid and cholecystitis is not excluded. 2. Enlarged prostate, and probable bladder diverticulum. Kervin Horowitz MD Gall Bladder Ultrasound 12/08/16 0000 Signed Impressions: Service Date/Time: Thursday, December 08, 2016 12:27 - CONCLUSION: Cholelithiasis and findings are suspicious for acute cholecystitis. Kervin Horowitz MD PE at Discharge GENERAL: Well-developed well-nourished. In no acute distress. SKIN: Warm and dry. No lesions noted. HEENT: Normocephalic. Pupils equal and round. Mucous membranes pink and moist. CARDIOVASCULAR: Regular rate and rhythm. No murmur appreciated. RESPIRATORY: No accessory muscle use. Clear to auscultation. Breath sounds equal bilaterally. GASTROINTESTINAL: Abdomen soft, mildly tender, nondistended. Bowel sounds x4. Postop changes. [place] drain in place. MUSCULOSKELETAL: No obvious deformities. No clubbing or cyanosis. No edema. NEUROLOGICAL: Awake and alert. No focal neurological deficits. Moves upper and lower extremities spontaneously. Normal speech. PSYCHIATRIC: Appropriate mood and affect; insight and judgment normal. Pt update on day of discharge Follow-up for cholecystitis. The patient has been ambulating. He states his pain is reasonably controlled. He's been able to eat a little bit. He's been passing some flatus. Going home today. Hospital Course Acute cholecystitis with abdominal pain: Patient with classic symptoms of the last 6 months of acute abdominal pain after eating associated with increased belching, flatulence. Laboratory studies did not indicate any obstructive pattern at this time. CT scan does indicate prominent gallbladder with gallbladder wall thickening and pericholecystic fluid indicative of cholecystitis, ultrasound the gallbladder shows cholelithiasis and findings are suspicious for acute cholecystitis. General surgery consulted, performed cholecystectomy, cleared for dc with outpatient follow-up. He received IV Cipro /Flagyl, continue antibiotics. Continue pain control. Lactic acid acidosis, resolved: Probably secondary to above. Repeat lactic acid level was normal Hypertension: Untreated. Improved. Elevated blood pressure likely secondary to pain reaction. Improved with pain control. Benign prostatic hypertrophy: Continue home medications Pt Condition on Discharge: Stable Discharge Disposition: Discharge Home Discharge Time: > 30 minutes Discharge Instructions DIET: Follow Instructions for: Heart Healthy Diet Activities you can perform: Regular-No Restrictions Activities to Avoid: Driving Follow up Referrals: PCP Follow-up - 1 Week Surgical - 1 Week with Kevin Lo MD New Medications: Ciprofloxacin (Cipro) 500 Mg Tab 500 MG PO BID Infection #10 Ref 0 TAB Metronidazole (Flagyl) 500 Mg Tab 500 MG PO TID Infection #15 Ref 0 TAB Hydrocodone-Acetaminophen (Hydrocodone-Acetaminophen) 10-325 mg Tab 1 TAB PO Q6HR PRN PAIN SCALE 6 TO 10 #28 TAB Continued Medications: Tamsulosin (Tamsulosin) 0.4 Mg Cap 0.4 MG PO DAILY Manage Prostate Problems #30 Ref 0 CAP Additional Information Written by Josue Craig, acting as scribe for Dr. Brown on 12/10/16 at 13:57. Josue Craig Dec 10, 2016 13:57 Gt Brown MD Dec 10, 2016 18:45
--- NOTE | 2016-12-11 11:23 | MP ---
cc: ARCHANA HENRY MD DATE OF SURGERY 12/09/2016 PREOPERATIVE DIAGNOSIS Acute cholecystitis POSTOPERATIVE DIAGNOSIS Acute calculous cholecystitis, hepatomegaly PROCEDURE Laparoscopic cholecystectomy SURGEON Archana Henry MD [employer] Staff ANESTHESIA General endotracheal anesthesia COMPLICATIONS None apparent. ESTIMATED BLOOD LOSS 50 cc SPECIMENS Gallbladder and contents. OPERATIVE FINDINGS The patient had significant inflammation of the gallbladder with hydrops. The gallbladder was full of medium-size gallstones. There was possibly some early gangrene. PROCEDURE IN DETAIL The patient was taken to the operating room, placed in a supine position. General endotracheal anesthesia was induced. The abdomen was prepped and draped in the usual sterile fashion and a surgical time-out was performed to verify correct patient, procedure and site. The patient was already on treatment antibiotics. A 5 mm incision was made superior to the umbilicus and the abdomen entered with a 5 mm OptiView trocar and laparoscope. It was insufflated to 15 mmHg using CO2 gas which the patient tolerated well. He was placed in reverse Trendelenburg position. A 12 mm port was placed in the epigastrium, a 5 mm in the right upper quadrant, and a 5 mm in the right lateral abdomen. Attention was then turned to the gallbladder. The gallbladder was very tense and basically unable to be grasped. Therefore, I made a defect in dome of the gallbladder with electrocautery and use the suction mechanical inspector to suction bile from the gallbladder. It was then grasped and retracted cephalad and at the infundibulum retracted laterally. There was severe thickening of the gallbladder wall and it was very edematous. It was also very fatty. The fat was cleared away at the area of the infundibulum. Careful dissection bluntly with the suction mechanical inspector and careful electrocautery dissection was used to delineate the cystic artery. It was doubly clipped proximally, once distally and transected. The cystic duct was seen to be directly entering the gallbladder and the common duct was also visible. The gallbladder including the cystic duct was quite friable and the cystic duct actually with only normal tension was beginning to tear. Therefore, I decrease tension and took the gallbladder in a dome down fashion off the liver with electrocautery. I then used a number one PDS Endoloop placed below the area of the tear in the cystic duct just before the junction of the common bile duct. The cystic duct then was transected sharply. The gallbladder as well as some stones was removed from the abdomen using the EndoCatch bag. Unfortunately, a fair amount of medium-sized stones had spilled and these were removed using the large scoop. The right upper quadrant was copiously irrigated. A small amount of oozing in the liver was cauterized and there was good hemostasis. Attention was turned again to the cystic duct stump which did not have any bile leakage. Due to the friability of the cystic duct, I opted to place a drain and a 10 flat channel drain was placed through the right lateral abdominal port and secured in place with 3-0 nylon suture. At this point, the trocars were removed and the abdomen allowed to desufflate. The fascia at the epigastric incision closed with interrupted 0 Vicryl sutures. The incision was irrigated and skin closed with 4-0 subcuticular Monocryl, as well as Dermabond. The patient tolerated procedure well, was extubated and taken to PACU in stable condition. MD DAINA Pitts/TYSON /9:29 AM /11:17 AM
== END 2016-12-10 16:30 | disposition home or self-care (01) ==
LOC: PHED 07:50 → PHEDA 11:53 → PH3A 12:45
PROVIDERS: ADMIT Internal Medicine; ATTEND Internal Medicine
DX: K80.12 Calculus of gallbladder with acute and chronic cholecystitis without obstruction (principal); R16.0 Hepatomegaly, not elsewhere classified; E87.2 Acidosis; I10 Essential (primary) hypertension; N40.0 Benign prostatic hyperplasia without lower urinary tract symptoms; Z96.652 Presence of left artificial knee joint
CPT/HCPCS: 00790; 47562; 74177; 76705; 80048; 80053; 81001; 83605; 83690; 85025; 85610; 85730; 88304; 93005; 96365; 96375; 99285; C9113; G0378; J0131; J0744; J2250; J2270; J2405; J2710; J3010; J3480; J7120; Q9963; Q9967

== ENCOUNTER 2017-02-02 10:53 | Emergency (ER) | payer MEDICAID, OTHER ==
[~2017-02-02] VITALS: Ht 180.3 cm; Wt 96.0 kg
[~2017-02-02 10:53] MED LIST changes: +CIPR-9 PO; -DIOV40TA PO; +HYDR-3583 PO; +METR-1 PO; +TAMS0.4C4 PO; -TAMS0.4C67 PO
[2017-02-02 10:56] VITALS: BP 172/103; PULSE 65; RESP 16; TEMP 98.2; O2SAT 95
[2017-02-02] MEDS ORDERED: DIOV40TA PO (11:04)
[2017-02-02] MEDS ORDERED: TAMS5CAP PO (11:28)
--- NOTE | 2017-02-02 11:36 | PD ---
HPI Chief Complaint: Medication Refill Request Time Seen by Provider: 11:29 Travel History International Travel<30 days: No Contact w/Intl Traveler<30days: No Traveled to known affect area: No History of Present Illness HPI 61-year-old male with history of BPH presents to the emergency room requesting medication refill. Flomax. Patient has been on Flomax for 2.5 years. States his primary care physician in [place] gave him a 3 month supply back in September and he was supposed to be back in [place] by this time but he stayed longer than he thought. Patient states he has been out of his medication for 3-4 days. It significantly affects his quality of life. When he does not have his medication he feels stressed and reports dysuria, urgency, frequency, and wakes up several times throughout the night with these symptoms. States they're significantly improved and he is on the medication. PFSH Past Medical History Hx Anticoagulant Therapy: No Asthma: No Heart Rhythm Problems: No Cancer: No Cardiovascular Problems: Yes (HTN) High Cholesterol: No Chest Pain: No Congestive Heart Failure: No COPD: No Diabetes: No Endocrine: No GERD: No Genitourinary: No Hiatal Hernia: No Hypertension: Yes Immune Disorder: No Kidney Stones: No Musculoskeletal: No Neurologic: No Psychiatric: No Respiratory: No Immunizations Current: Yes Renal Failure: No Sleep Apnea: No Thyroid Disease: No Ulcer: No Past Surgical History Abdominal Surgery: No AICD: No Cardiac Surgery: No Ear Surgery: No Endocrine Surgery: No Eye Surgery: No Genitourinary Surgery: No Gynecologic Surgery: No Joint Replacement: No Oral Surgery: Yes (extraction ) Pacemaker: No Thoracic Surgery: No Other Surgery: Yes (left knee ) Social History Alcohol Use: No Tobacco Use: No (NEVER) Substance Use: No Allergies-Medications (Allergen,Severity, Reaction): Coded Allergies: No Known Allergies (Unverified , 02/02/17) Reported Meds & Prescriptions Reported Meds & Active Scripts Active Reported Diovan (Valsartan) 40 Mg Tab 20 Mg PO BID Tamsulosin (Tamsulosin HCl) 0.4 Mg Cap 0.4 Mg PO DAILY Review of Systems Except as stated in HPI: all other systems reviewed are Neg Physical Exam Narrative GENERAL: Well-nourished, well-developed male in no acute distress. Afebrile. Ambulatory. SKIN: Focused skin assessment warm/dry. HEAD: Normocephalic. EYES: No scleral icterus. No injection or drainage. NECK: Supple, trachea midline. No JVD or lymphadenopathy. CARDIOVASCULAR: Regular rate and rhythm without murmurs, gallops, or rubs. RESPIRATORY: Breath sounds equal bilaterally. No accessory muscle use. PSYCHIATRIC: No delusional thought processes. No hallucinations. Data Data Last Documented VS Vital Signs Date Time Temp Pulse Resp B/P Pulse Ox O2 Delivery O2 Flow Rate FiO2 02/02/17 10:56 98.2 65 16 172/103 95 MDM Medical Decision Making Medical Screen Exam Complete: Yes Emergency Medical Condition: Yes Medical Record Reviewed: Yes Differential Diagnosis Medication refill, dysuria, BPH Narrative Course 61-year-old male presents to the emergency room requesting medication refill of Flomax. Patient has been on this medication for 2.5 days. He had a 3 month supply written by his primary care physician but ran out of it 3-4 days ago. His PCP is in [place] and he was supposed to be back by now but was delayed by 2 weeks. Not having this medication significantly affects his quality-of- life causing extreme stress because of the symptoms. Patient was informed that the emergency room is not the proper place to have medications refilled. He was given an [employer] flyer told to follow-up with the clinic for future prescriptions. He will be given a 1 month supply at this time. He understands and agrees to plan. Diagnosis Primary Impression: Medication refill Referrals: [facility] Patient Instructions: General Instructions, Medication Refill, ED Additional Instructions: Follow-up with a primary care physician. Return to the emergency room for worsening symptoms. Scripts Tamsulosin (Flomax)0.4 Mg Cap0.4 Mg PO HS #30 CAP Ref 0 Prov:Pancho Pablo MD 02/02/17 Disposition: 01 DISCHARGE HOME Condition: Stable Bette Durham Feb 02, 2017 11:36
== END 2017-02-02 11:56 | disposition home or self-care (01) ==
LOC: PHEFT 10:53
DX: N40.1 Benign prostatic hyperplasia with lower urinary tract symptoms (principal); R35.1 Nocturia; R30.0 Dysuria; I10 Essential (primary) hypertension; Z79.899 Other long term (current) drug therapy
CPT/HCPCS: 99281

== ENCOUNTER 2017-10-09 08:22 | Emergency (ER) | payer MEDICAID ==
[~2017-10-09] VITALS: Ht 180.3 cm; Wt 99.0 kg
[~2017-10-09 08:22] MED LIST changes: -CIPR-9 PO; +DIOV40TA PO; -HYDR-3583 PO; -METR-1 PO; +TAMS5CAP PO
[2017-10-09 08:27] VITALS: BP 141/87; PULSE 68; RESP 16; TEMP 98.5; O2SAT 98
--- NOTE | 2017-10-09 08:35 | PD ---
HPI Chief Complaint: Cold / Flu Symptoms Time Seen by Provider: 08:34 Travel History International Travel<30 days: No Contact w/Intl Traveler<30days: No Traveled to known affect area: No History of Present Illness HPI 62-year-old male came to the emergency room with history of cough, body aches, fever for past 5 days. Patient says most of his symptoms are getting better except for the cough. The cough is mostly dry and has kept him up at night. Patient is not a smoker. Vital signs were stable. No history of sputum production. No history of chest pain. Patient was afebrile in the triage. He is here with his . No known sick contacts. No history of COPD or asthma. [facility] Past Medical History Narrative Medical List of his past medical, surgical, social and family history is reviewed from the nursing note. Hx Anticoagulant Therapy: No Asthma: No Heart Rhythm Problems: No Cancer: No Cardiovascular Problems: Yes (HTN) High Cholesterol: No Chest Pain: No Congestive Heart Failure: No COPD: No Diabetes: No Endocrine: No GERD: No Genitourinary: No Hiatal Hernia: No Hypertension: Yes Immune Disorder: No Kidney Stones: No Musculoskeletal: No Neurologic: No Psychiatric: No Respiratory: No Immunizations Current: Yes Renal Failure: No Sleep Apnea: No Thyroid Disease: No Ulcer: No Past Surgical History Abdominal Surgery: No AICD: No Cardiac Surgery: No Ear Surgery: No Endocrine Surgery: No Eye Surgery: No Genitourinary Surgery: No Gynecologic Surgery: No Joint Replacement: No Oral Surgery: Yes (extraction ) Pacemaker: No Thoracic Surgery: No Other Surgery: Yes (left knee ) Social History Alcohol Use: No Tobacco Use: No (NEVER) Substance Use: No Allergies-Medications (Allergen,Severity, Reaction): Coded Allergies: No Known Allergies (Unverified Adverse Reaction, Unknown, 10/09/17) Comments No known drug allergies. Reported Meds & Prescriptions Reported Meds & Active Scripts Active Flomax (Tamsulosin HCl) 0.4 Mg Cap 0.4 Mg PO HS Narrative Medication List of his home medications reviewed from the nursing note. Review of Systems Except as stated in HPI: all other systems reviewed are Neg General / Constitutional: Positive: Fever Respiratory: Positive: Cough Musculoskeletal: Positive: Myalgias Physical Exam Narrative GENERAL: Awake, alert, no obvious distress SKIN: Focused skin assessment warm/dry. HEAD: Atraumatic. Normocephalic. EYES: Pupils equal and round. No scleral icterus. No injection or drainage. ENT: No nasal bleeding or discharge. Mucous membranes pink and moist. NECK: Trachea midline. No JVD. CARDIOVASCULAR: Regular rate and rhythm. No murmur appreciated. RESPIRATORY: No accessory muscle use. Clear to auscultation. Breath sounds equal bilaterally. GASTROINTESTINAL: Abdomen soft, non-tender, nondistended. Hepatic and splenic margins not palpable. MUSCULOSKELETAL: No obvious deformities. No clubbing. No cyanosis. No edema. NEUROLOGICAL: Awake and alert. No obvious cranial nerve deficits. Motor grossly within normal limits. Normal speech. PSYCHIATRIC: Appropriate mood and affect; insight and judgment normal. Data Data Last Documented VS Vital Signs Date Time Temp Pulse Resp B/P (MAP) Pulse Ox O2 Delivery O2 Flow Rate FiO2 10/09/17 08:27 98.5 68 16 141/87 (105) 98 Orders Orders Chest, Pa & Lat (10/09/17 ) Ed Discharge Order (10/09/17 09:14) [facility] Medical Decision Making Medical Screen Exam Complete: Yes Emergency Medical Condition: Yes Medical Record Reviewed: Yes Differential Diagnosis Viral illness, bronchitis, pneumonia Narrative Course 9:11 AM I explained to the patient and his that since the symptoms have been going on for past 5 days it is pointless doing a flu test at this time since even if is positive it's too late to start Tamiflu. Awaiting for a chest x-ray. If it's positive then patient will be started on antibiotics. Otherwise he will be discharged home. Procedures EKG Prior to Arrival: No Diagnosis Primary Impression: Viral illness Additional Impression: Cough Referrals: Primary Care Physician Additional Instructions: Please return to the ER if condition worsens or any other new concerns. Otherwise follow-up with your primary care as needed. Drink tea with honey and lemon. Keep yourself hydrated. He can take Tylenol/Motrin/ibuprofen/Advil for aches and pains or fever. Med/Other Pt SpecificInfo: No Change to Meds Disposition: 01 DISCHARGE HOME Condition: Stable Dilip Beltran MD Oct 09, 2017 08:35
--- NOTE | 2017-10-09 09:08 | RADRPT ---
EXAM DATE/TIME: 10/09/2017 08:55 [facility] COMPARISON: No previous studies available for comparison. INDICATIONS : Cough. MEDICAL HISTORY : Hypertension. Benign prostatic hyperplasia, (BPH) SURGICAL HISTORY : Total knee replacement, left. ENCOUNTER: Initial ACUITY: 4 - 6 days PAIN SCORE: 0/10 LOCATION: chest FINDINGS: PA and lateral views of the chest demonstrate the lungs to be symmetrically aerated without evidence of mass, infiltrate or effusion. The cardiomediastinal contours are unremarkable. Osseous structure s are intact. CONCLUSION: No acute disease. Matt Bunch Jr., MD on October 09, 2017 at 9:06 Board Certified Radiologist. This report was verified electronically.
== END 2017-10-09 09:32 | disposition home or self-care (01) ==
LOC: PHEFT 08:22
DX: B34.9 Viral infection, unspecified (principal); R05 Cough; I10 Essential (primary) hypertension; N40.0 Benign prostatic hyperplasia without lower urinary tract symptoms
CPT/HCPCS: 71046; 99283